=== PATIENT | female | born 1990 | race Native Hawaiian/Other Pacific Islander ===

== ENCOUNTER 2017-09-11 01:49 | Inpatient (IN) | payer MEDICAID ==
[2017-09-11] VITALS (100 sets, daily range): BP systolic 91–137; BP diastolic 51–86; PULSE 68–233; RESP 16–20; TEMP 97.9–98.5; O2SAT 98
[~2017-09-11] VITALS: Ht 162.6 cm; Wt 74.0 kg
[2017-09-11] MEDS ORDERED: VITATAB56 PO (02:32)
[2017-09-11] MEDS ORDERED: PREN1TAB45 PO (02:32)
[2017-09-11] MEDS ORDERED: FOLI400T PO (02:32)
[2017-09-11] MEDS ORDERED: LACTATED RINGER'S 1000 ML INJ 1,000 ML IV SCH (02:52)
[2017-09-11] MEDS ORDERED: LACTATED RINGER'S 1000 ML INJ 1,000 ML IV PRN (02:52)
--- NOTE | 2017-09-11 02:52 | PD ---
HPI Chief Complaint Abdominal pain and and fluid per vagina Date Seen: Sep 11, 2017 Time Seen: 02:48 Travel History International Travel<30 Days: No Contact w/Intl Traveler<30Days: No Known Affected Area: No History of Present Illness HPI 27-year-old who is at 38 weeks and 4 days comes in complaining of thin vaginal discharge since 0100 associated with suprapubic pain. Patient denies vaginal bleeding although she had a little bit of brown spotting earlier in the evening and she is having good movement. Denies any other antepartum complications at this time and she is group B strep negative. Weeks Gestation: 38 Para: 0 : 1 History Past Medical History Medical History: Denies Significant Hx Past Surgical History Narrative Surgical Partial thyroidectomy Family History Family History: Negative Social History Alcohol Use: No Tobacco Use: No Substance Abuse: No Allergies-Medications (Allergen,Severity, Reaction): Coded Allergies: No Known Allergies (Verified Allergy, Unknown, 09/11/17) Home Meds Reported Medications Cholecalciferol (Vitamin D-400) 400 Unit Tab, 400 UNITS PO DAILY for Nutritional Supplement, #1 BOTTLE 0 Refills 09/11/17 Folic Acid (Folic Acid) 0.4 Mg Tab, 400 MCG PO DAILY for Nutritional Supplement , TAB 0 Refills 09/11/17 Vit,Calc76/Iron/Folic (Pnv 29-1 Tablet) 29 Mg Iron-1 Mg Tablet, 1 TAB PO DAILY 09/11/17 Review of Systems Except as stated in HPI: all other systems reviewed are Neg Physical Exam Narrative GENERAL: Well-nourished, well-developed patient. SKIN: Warm and dry. HEAD: Normocephalic and atraumatic. EYES: No scleral icterus. No injection or drainage. ENT: No nasal drainage noted. Mucous membranes pink. Airway patent. NECK: Supple, trachea midline. No JVD. CARDIOVASCULAR: Regular rate and rhythm without murmurs, gallops, or rubs. RESPIRATORY: Breath sounds equal bilaterally. No accessory muscle use. ABDOMEN/GI: Abdomen soft, non-tender, bowel sounds present, no rebound, no guarding Gravid to [40-] weeks size Fundal Height: [-] GENITOURINARY: Difficult exam due to patient anxiety External Genitalia: intact and normal in appearance BUS glands: [Normal-] Cervix: [-] Anterior Dilatation: [-] 4 Effacement: [-] 100% Station: [-] -1 Presentation: [-] Vertex with bulging membranes Membranes: [intact or ruptured] intact by exam with a negative amnisure Uterine Contractions: [-] Every 5-7 minutes FHT's: Category: [-] 1 Baseline: [-] 140 Reactive: [-] Moderate Variability: [-] Moderate Decels: [-] Absent EXTREMITIES: No cyanosis or edema. BACK: Nontender without obvious deformity. No CVA tenderness. NEUROLOGICAL: Awake and alert. Motor and sensory grossly within normal limits. Five out of 5 muscle strength in all muscle groups. Normal speech. Data Data Vital Signs Reviewed: Yes Group B Strep: Negative MDM Medical Record Reviewed: Yes Plan 27-year-old who is at 38 weeks 4 days who is in labor Group B strep is negative Difficult exam due to patient's anxiety but she is planning on obtaining an epidural Diagnosis Diagnosis: Primary Impression: 38 weeks gestation of Additional Impression: Irregular uterine contractions Claudia Reynolds MD Sep 11, 2017 02:52
[2017-09-11] MEDS ORDERED: ONDANSETRON HCL 4 MG/2 ML VIAL IV PUSH PRN (03:00)
[2017-09-11] MEDS ORDERED: MINERAL OIL 10 ML VIAL TOPICAL PRN (03:00)
[2017-09-11] MEDS ORDERED: LIDOCAINE HCL 1% 50 ML VIAL I-DERMAL PRN (03:00)
[2017-09-11] MEDS ORDERED: OXYTOCIN 30 UNITS-500ML PREMIX 500 ML IV ONE (03:00)
[2017-09-11] MEDS ORDERED: CITRIC ACID-SODIUM CITRATE LIQ 30 ML UDC PO SCH (03:00)
[2017-09-11] MEDS ORDERED: LIDOCAINE HCL 1% 50 ML VIAL INFIL PRN (03:00)
[2017-09-11] MEDS ORDERED: SODIUM CHLORID 0.9% 500 ML INJ 500 ML IV PRN (03:00)
[2017-09-11] MEDS ORDERED: SODIUM CHLOR 0.9% 1000 ML INJ 1,000 ML IV PRN (03:12)
[2017-09-11 03:35] LABS: AUTOMATED NEUTROPHIL # 7.3 TH/MM3 (1.8-7.7); BASOPHIL % 0.3 % (0.0-2.0); EOSINOPHIL % 0.4 % (0.0-4.0); HEMATOCRIT 36.5 % (35.0-46.0); HEMOGLOBIN 12.4 GM/DL (11.6-15.3); LYMPH % 21.4 % (9.0-44.0); LYMPHOCYTE # 2.3 TH/MM3 (1.0-4.8); MEAN CELL VOLUME 80.6 FL (80.0-100.0); MEAN CORPUSCULAR HEMOGLOBIN 27.4 PG (27.0-34.0); MEAN CORPUSCULAR HGB CONC 34.1 % (32.0-36.0); MEAN PLATELET VOLUME 9.2 FL (7.0-11.0); MONO % 9.7 % (0.0-8.0); NEUT % 68.2 % (16.0-70.0); PLATELET COUNT 160 TH/MM3 (150-450); RED BLOOD COUNT 4.53 MIL/MM3 (4.00-5.30); RED CELL DISTRIBUTION WIDTH 14.2 % (11.6-17.2); WHITE BLOOD COUNT 10.8 TH/MM3 (4.0-11.0)
[2017-09-11] MEDS ORDERED: fentaNYL 2MCG-BUPIV 0.125% INJ 100 ML ONE (04:42)
[2017-09-11] MEDS ORDERED: ePHEDrine/NS 25 MG/5 ML SYRINGE ONE (04:45)
[2017-09-11] MEDS ORDERED: NO SYSTEM NARCOTICS PRN (05:00)
[2017-09-11] MEDS ORDERED: DO NOT ADMINISTER ANTICOAGULANTS PRN (05:00)
[2017-09-11] MEDS ORDERED: fentaNYL 2MCG-BUPIV 0.125% 100 ML EPIDURAL PRN (05:00)
[2017-09-11] MEDS ORDERED: ePHEDrine/NS 25 MG/5 ML SYRINGE IV PUSH PRN (06:00)
[2017-09-11] MEDS ORDERED: OXYTOCIN 30 UNITS-500ML PREMIX 500 ML IV PRN (09:15)
--- NOTE | 2017-09-11 10:09 | PD.OB.DELI ---
Weeks gestation: 38 Anesthesia: Epidural Episiotomy: Midline Vaginal Delivery: Normal Presentation: Occiput anterior, Compound (Right hand) Nuchal Cord: None Delayed cord clamping (45 sec): Yes Infant: Male Delivery date: Sep 11, 2017 Delivery time: 09:46 One Minute : 9 Five Minute : 9 Placenta: Spontaneous delivery, Intact, 3 vessel cord Laceration: Episiotomy (midline perineal) Repair: Chromic running Estimated blood loss: 300 mL Additional Information healthy male infant Janie Be MD Sep 11, 2017 10:09
[2017-09-11] MEDS ORDERED: ONDANSETRON ODT 4 MG TAB PO PRN (10:15)
[2017-09-11] MEDS ORDERED: ACETAMINOPHEN 325 MG TAB PO PRN (10:15)
[2017-09-11] MEDS ORDERED: SODIUM CHLORIDE 0.9% FLUSH 10 ML FLUSH IV FLUSH SCH (10:15)
[2017-09-11] MEDS ORDERED: BENZOCAINE 20% TOPICAL SPRAY 60 ML CAN TOPICAL PRN (10:15)
[2017-09-11] MEDS ORDERED: ALUMINUM/MAGNESIUM/SIMETH 30 ML CUP PO PRN (10:15)
[2017-09-11] MEDS ORDERED: OXYTOCIN 30 UNITS-500ML PREMIX 500 ML IV SCH (10:15)
[2017-09-11] MEDS ORDERED: DOCUSATE SODIUM 50 MG/SENNA 8.6 MG TAB PO PRN (10:15)
[2017-09-11] MEDS ORDERED: WITCH HAZEL 50%/GLYCERIN 12.5% 40 PAD JAR TOPICAL PRN (10:15)
[2017-09-11] MEDS ORDERED: SODIUM CHLORIDE 0.9% FLUSH 10 ML FLUSH IV FLUSH PRN (10:15)
[2017-09-11] MEDS ORDERED: oxyCODONE/ACETAMINOPHEN 5 MG/325 MG TAB PO PRN ×2 (10:15)
[2017-09-11] MEDS ORDERED: DIPHTH/TETANUS/ACEL PERTUSSIS (BOOSTER) 0.5 ML VIAL/PFS IM ONE (16:00)
[2017-09-11] MEDS ORDERED: MEASLES, MUMPS, RUBELLA VACCINE 0.5 ML VIAL SQ ONE (16:00)
[2017-09-11] MEDS: IBUPROFEN 800 MG TAB PO PRN (19:35)
[2017-09-11] MEDS ORDERED: ZOLPIDEM TARTRATE 5 MG TAB PO PRN (21:00)
[2017-09-12] MEDS: IBUPROFEN 800 MG TAB PO PRN (07:36)
--- NOTE | 2017-09-12 07:48 | HHI.OB ---
Subjective Post Day: 1 Remarks doing well, , will talk to about whether to have circ done Objective Vitals/I&O Vital Signs Date Time Temp Pulse Resp B/P (MAP) Pulse Ox O2 Delivery O2 Flow Rate FiO2 09/11/17 15:00 92 09/11/17 12:20 118/69 (85) 09/11/17 12:20 98.5 115 20 98 09/11/17 11:41 116 115/62 (79) 09/11/17 11:15 107 113/65 (81) 09/11/17 11:01 108 111/72 (85) 09/11/17 10:46 100 126/70 (88) 09/11/17 10:12 98 09/11/17 10:10 16 09/11/17 10:10 98 115/67 (83) 09/11/17 09:45 139 114/73 (87) 09/11/17 09:45 143 09/11/17 09:40 121 09/11/17 09:35 127 09/11/17 09:30 134 09/11/17 09:25 94 09/11/17 09:20 124 09/11/17 09:15 110 09/11/17 09:15 130 137/72 (93) 09/11/17 09:10 106 09/11/17 09:05 114 09/11/17 09:00 120 09/11/17 08:55 102 09/11/17 08:50 90 09/11/17 08:46 96 135/61 (85) 09/11/17 08:45 133 09/11/17 08:25 106 09/11/17 08:20 91 09/11/17 08:15 93 09/11/17 08:15 107 122/54 (76) 09/11/17 08:10 113 09/11/17 08:05 116 09/11/17 08:00 98.2 09/11/17 08:00 89 09/11/17 07:55 98 09/11/17 07:50 102 Objective Remarks GENERAL: Well-nourished, well-developed patient. CARDIOVASCULAR: Regular rate and rhythm without murmurs, gallops, or rubs. RESPIRATORY: Breath sounds equal bilaterally. No accessory muscle use. ABDOMEN/GI: Abdomen soft, non-tender. Fundus: Firm, non-tender at umbilicus. GENITOURINARY: Light to moderate bleeding. EXTREMITIES: No cyanosis or edema, non-tender, without signs of DVT. Medications and IVs Current Medications Medications (Trade) Dose Ordered Sig/Pk Route Start Time Stop Time Status Last Admin (NS Flush) 2 ml BID IV FLUSH 09/11/17 10:15 (NS Flush) 2 ml UNSCH PRN IV FLUSH 09/11/17 10:15 (Tylenol) 650 mg Q4H PRN PO 09/11/17 10:15 (Motrin) 800 mg Q8H PRN PO 09/11/17 10:15 09/12/17 07:36 (Percocet 5-325 Mg) 1 tab Q4H PRN PO 09/11/17 10:15 (Percocet 5-325 Mg) 2 tab Q4H PRN PO 09/11/17 10:15 (Americaine 20% Top Spr) 1 spray Q4H PRN TOPICAL 09/11/17 10:15 09/12/17 07:36 (Tucks Pads) 1 applic QID PRN TOPICAL 09/11/17 10:15 09/12/17 07:36 (Samira-Colace) 2 tab Q12H PRN PO 09/11/17 10:15 09/12/17 07:36 (Ambien) 5 mg HS PRN PO 09/11/17 21:00 (Mag-Al Plus Susp Liq) 15 ml Q8H PRN PO 09/11/17 10:15 (Zofran Odt) 4 mg Q6H PRN PO 09/11/17 10:15 Assessment/Plan Problem List: (1) (spontaneous vaginal delivery) ICD Codes: O80 - Encounter for full-term uncomplicated delivery Assessment and Plan PPD #1 , male, considering paying for circ with office pt doing well continue PP care Discharge Planning routine Attending Attestation pt seen by Vesta Whittington MD Sep 12, 2017 07:48
[2017-09-12 08:00] VITALS: BP 111/64; PULSE 99; RESP 20; TEMP 98.1; O2SAT 96
[2017-09-12] MEDS ORDERED: IBUP1TAB7 PO (13:04)
--- NOTE | 2017-09-12 13:05 | HHI.DCPOC ---
Discharge Care Plan Your Health Problems Are: Pelvic pain Report Symptoms to Your Doctor -Temperature above 100.5 degrees -Redness, of incision or excessive or foul smelling drainage -Unusual pain or calf pain -Increased vaginal bleeding -Painful or difficulty urinating -Feelings of extreme sadness or anxiety after 2 weeks Goals to Promote Your Health * To prevent worsening of your condition and complications * To maintain your health at the optimal level Directions to Meet Your Goals Take your medications as prescribed Follow your dietary instruction Follow activity as directed Ensure plenty of rest for recovery Drink fluids for hydration Keep your appointments as scheduled Take your immunizations and boosters as scheduled If your symptoms worsen call your PCP, if no PCP go to Urgent Care Center or Emergency Room Smoking is Dangerous to Your Health. Avoid second hand smoke Call the 24-hour crisis hotline for domestic abuse at Vesta Dasilva MD Sep 12, 2017 13:05
== END 2017-09-12 14:15 | disposition home or self-care (01) | DRG 775 ==
LOC: HOBED 01:49 → H2EB 02:50 → H1EA 11:58
PROVIDERS: ADMIT Obstetrics & Gynecology; ATTEND Obstetrics & Gynecology
PROC: 10E0XZZ Delivery of Products of Conception, External Approach (ICD-10-PCS; principal; 2017-09-11)
PROC: 0W8NXZZ Division of Female Perineum, External Approach (ICD-10-PCS; 2017-09-11)
DX: O32.6XX0 Maternal care for compound presentation, not applicable or unspecified (principal); Z37.0 Single live birth; Z3A.38 38 weeks gestation of pregnancy
CPT/HCPCS: 80307; 84112; 85025; 86900; 86901; J2590; J7120